=== PATIENT | female | born 1975 | race African-American/Black ===

== ENCOUNTER 2016-10-26 16:21 | Observation (INO) | payer SELFPAY ==
--- NOTE | ~2016-10-26 | DS ---
Discharge Summary [facility] [address] [place]. [address] NAME: ALEKSANDRA COATES : 71 STATUS : DIS Vivek PAT#: [id number] AGE: 41 ADM/REG DATE : 10/26/16 MR#: [id number] REPORT SERV DATE: 10/28/16 DICTATED BY: DAVID TUCKER DATE: 10/27/16 REPORT STATUS : Draft TRANSCRIBED BY: ALINAL DATE: 10/27/16 ADMISSION DATE: 10/26/2016 DISCHARGE DATE: 10/27/2016 CHIEF COMPLAINT ON ADMISSION: Left toothache, earache, and hypertension. DISCHARGING DIAGNOSES: 1. Uncontrolled hypertension. 2. Severe periodontal disease. 3. Left facial pain. 4. History of gastric bypass. HISTORY OF PRESENT ILLNESS: Please see full H and P by Dr. Dale De La Fuente regarding initial presentation. HOSPITAL COURSE: 1. Hypertensive urgency. The patient's blood pressure initially in the ER was 238/126. She was admitted to the hospital with pain control and some nitroglycerin paste. Her blood pressure has much improved. She currently has no chest pain. We will discharge her on dose of Norvasc. She did have troponins negative x2. She will follow up with primary care. Blood pressure at this time is 155/90 and last time was 161/81. 2. Left-sided facial pain. The patient had CT of the neck and face with contrast notably largely for periodontal disease. Some inflammation of the left side of the face, but no discrete abscess. She does have a small grape-sized nodule of the mandible on the left side that is palpable on exam. We will continue Augmentin as started by Dr. De La Fuente and have her follow up with the dentist ABIGAIL. 3. History of gastric bypass. Continue her outpatient regimen of vitamins and follow up with her outpatient providers. PERTINENT LABORATORY DATA: White blood cell count 6.0, hemoglobin 13.4, platelet count of 150. BMP unremarkable. DISCHARGE MEDICATION CHANGES: The patient will be on Norvasc 5 mg daily, Augmentin 875 p.o. b.i.d. for the next five days. She will also be given tramadol for pain control. DISPOSITION: Home. Time spent on this discharge is less than 30 minutes. DNK/NAYELI David Tucker MD Discharge Summary [place] [id number] [facility] [place]. [address] NAME: ALEKSANDRA COATES : 71 STATUS : DIS Vivek PAT#: [id number] AGE: 41 ADM/REG DATE : 10/26/16 MR#: [id number] REPORT SERV DATE: 10/28/16 DICTATED BY: DAVID TUCKER DATE: 10/27/16 REPORT STATUS : Draft TRANSCRIBED BY: NAYELI DATE: 10/27/16 / [id number] CC: MD [place] WILLIAM C
--- NOTE | ~2016-10-26 | HP ---
History And Physical [address] [place]. [address] NAME: ALEKSANDRA COATES : 71 STATUS : ADM Vivek PAT#: [id number] AGE: 41 ADM/REG DATE : 10/26/16 MR#: [id number] REPORT SERV DATE: 10/27/16 DICTATED BY: ALMA ROSA HAM DATE: 10/26/16 REPORT STATUS : Draft TRANSCRIBED BY: MODL DATE: 10/26/16 DATE OF ADMISSION: 10/26/2016 CHIEF COMPLAINT: A 41-year-old female presenting with left toothache, left earache, and uncontrolled hypertension. HISTORY OF PRESENTING ILLNESS: The patient's history was obtained through careful interview with the patient and brother coupled with review of [facility] medical records. The patient, just on the day prior to admission, had broken one of her left upper molars and began to have extreme pain related to this. She felt swelling going into her face as if a tooth abscess had formed with a "knot" that formed. Today, the pain was progressing into her left ear. She describes about a 10/10 severity throbbing constant pain. Then, she came to the emergency department to have this tooth looked at and had an initial blood pressure of 238/126. She has had nausea, but no vomiting. She has then developed some headache, shortness of breath, and chest pain in the middle of her chest without radiation though, a squeezing quality, 9/10 severity that improved with blood pressure management. She has felt some slight left hand numbness, but no dysarthria, no confusion, no dizziness, no hemiparesis, and no facial droop. No fevers or chills. She has had slight diaphoresis. REVIEW OF SYSTEMS: Otherwise, a 14-point review of systems was obtained and was negative. PAST MEDICAL HISTORY: 1. Gastric bypass surgery in 2014 with 180-pound weight loss. 2. Previous morbid obesity with hypertension, but her high blood pressures had apparently resolved with weight loss. 3. No diabetes. 4. No cardiac disease. 5. No lung disease. PAST SURGICAL HISTORY: 1. Gastric bypass surgery in 2013. 2. Umbilical hernia repair. 3. Partial hysterectomy. ALLERGIES: KIWI AND STRAWBERRY. History And Physical [address] [address] NAME: ALEKSANDRA COATES : 71 STATUS : ADM Vivek PAT#: [id number] AGE: 41 ADM/REG DATE : 10/26/16 MR#: [id number] REPORT SERV DATE: 10/27/16 DICTATED BY: ALMA RSOA HAM DATE: 10/26/16 REPORT STATUS : Draft TRANSCRIBED BY: NAYELI DATE: 10/26/16 SOCIAL HISTORY: Quit smoking five months ago. Drinks occasional alcohol. Is single. Lives in [place], [place]. 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 FAMILY HISTORY: Hypertension, heart disease, diabetes, and blood clots. CURRENT MEDICATIONS: Include aspirin 81 mg p.o. daily, vitamin B12, vitamin D, folic acid, and multivitamin. PHYSICAL EXAMINATION: VITAL SIGNS: Temperature 98.0, pulse 52, blood pressure 206/111, respiratory rate 16, O2 saturation 100% on room air. GENERAL: Pleasant, cooperative female, in evidence of some slight distress secondary to persistent headache. Her chest pain is now resolved. HEENT: Pupils equal, round, and reactive to light. No conjunctival pallor. No scleral icterus. Nares are patent. Oropharynx is clear of obstruction. Moist mucous membranes. NECK: Trachea midline. No thyromegaly. LYMPH: No cervical lymphadenopathy. No supraclavicular lymphadenopathy. RESPIRATORY: Clear to auscultation at bases. No wheezes, rales, or rhonchi. Normal respiratory effort. CARDIOVASCULAR: Bradycardic, regular rhythm. No murmurs, rubs, or gallops. No extremity edema is appreciated. ABDOMEN: Soft, nontender, nondistended. Normal bowel sounds auscultated throughout. No hepatosplenomegaly. DERMATOLOGICAL: Warm and dry extremities. No pallor, no cyanosis. PSYCHIATRIC: Normal affect. Good mood. Alert and oriented x3. Left ear exam shows slight swelling of the tympanic membrane, but no erythema or purulence behind it. Mouth exam shows a fractured upper left molar with obvious caries. No overt purulent drainage, but there is swelling around that tooth. LABORATORY DATA: White blood cell count 5.3, hemoglobin 15, hematocrit 46, platelets 175. Sodium 139, potassium 4.2, chloride 104, bicarb 28, BUN 9, creatinine 1.15, glucose 80. Troponin negative. INR 1.1. STUDIES: 1. Chest x-ray by my own evaluation shows no acute cardiopulmonary process. 2. EKG by my own evaluation shows sinus bradycardia, premature ventricular contractions. ASSESSMENT AND PLAN: 1. Hypertensive urgency. Use p.r.n. medications. Check thyroid. Obtain pain control. 2. Left tooth abscess. Place on Augmentin p.o. Check a CT scan of the neck and face to rule out significant abscess that might require surgical drainage? 3. History of gastric bypass with 180-pound weight loss. History And Physical [address] [address] NAME: ALEKSANDRA COATES : 71 STATUS : ADM Vivek PAT#: [id number] AGE: 41 ADM/REG DATE : 10/26/16 MR#: [id number] REPORT SERV DATE: 10/27/16 DICTATED BY: ALMA ROSA HAM DATE: 10/26/16 REPORT STATUS : Draft TRANSCRIBED BY: MODMagan DATE: 10/26/16 KPL/NAYELI Alma Rosa Ham M.D. / [id number] CC: Ashley Perez
[~2016-10-26 16:21] MED LIST: ASAB PO; LEVSINTAB PO; LISINOPRIL40 MG PO; LORTABLIQ PO; NORV5 PO; PR25 PO; PRILO PO; ZOFRAN4 PO
[2016-10-26 16:22] LABS: BASOPHILS 0.4 %; BASOPHILS ABSOLUTE 0.02 10/3/uL (0.0-0.16); EOSINOPHILS 1.5 %; EOSINOPHILS ABSOLUTE 0.08 10/3/uL (0.0-0.53); ER CBC TAT 0 Hrs 08 Mins; IMMATURE GRANULOCYTES 0.2 %; IMMATURE GRANULOCYTES ABSOLUTE 0.01 10/3/uL (0.0-0.11); LYMPHOCYTES 35.3 %; LYMPHOCYTES ABSOLUTE 1.87 10/3/uL (0.67-4.30); MEAN CORPUS HGB CONC 33.5 g/dL (32.0-36.0); MEAN CORPUSCULAR VOLUME 83.6 fL (80-100); MEAN PLATELET VOLUME 10.5 fL (9.2-13.0); MONOCYTES 4.9 %; MONOCYTES ABSOLUTE 0.26 10/3/uL (0.21-1.20); NEUTROPHILS 57.7 %; NEUTROPHILS ABSOLUTE 3.06 10/3/uL (2.02-8.40); PLATELET COUNT 175 10/3/uL (150-400); RBC DISTRIBUTION WIDTH 13.1 % (12.0-16.0); WHITE BLOOD CELLS 5.3 10/3/uL (4.5-10.5)
[2016-10-26 16:23] LABS: HEMOGLOBIN 15.4 g/dL (12.0-16.0); MANUAL DIFF NO %
[2016-10-26 16:36] LABS: INTERNATIONAL NORMAL RATI 1.1 UNITS (-); PARTIAL THROMBO TIME 25.6 SEC (22.5-37.2); PROTIME (NOT ORD) 13.6 SEC (12.0-14.5)
[2016-10-26 16:38] LABS: BUN (BLOOD UREA NITROGEN) 9 MG/DL (6-23); CALCIUM, SERUM 9.1 MG/DL (8.5-10.4); CHEST PAIN PROFILE TAT 0 Hrs 24 Mins; CHLORIDE, SERUM 104 MMOL/L (96-112); CO2 (CARBON DIOXIDE) 28 MMOL/L (24-34); CREATININE 1.15 MG/DL (0.55-1.02); GFR AFRICAN AMERICAN 67 ML/MIN (>=60); GFR NON AFRICAN AMERICAN 58 ML/MIN (>=60); GLUCOSE, SERUM 80 MG/DL (60-99); POTASSIUM, SERUM 4.2 MMOL/L (3.5-5.3); SODIUM, SERUM 139 MMOL/L (135-148); TROPONIN I <0.02 NG/ML (<0.05)
[2016-10-26] MEDS ORDERED: FOLIC ACID400 MC1 PO (18:31)
[2016-10-26] MEDS ORDERED: ASAB PO (18:31)
[2016-10-26] MEDS ORDERED: CYANO1000T PO (18:31)
[2016-10-26] MEDS ORDERED: VITD PO (18:32)
[2016-10-26] MEDS ORDERED: MVI PO (18:32)
[2016-10-27 06:01] LABS: BASOPHILS 0.3 %; BASOPHILS ABSOLUTE 0.02 10/3/uL (0.0-0.16); EOSINOPHILS 0.5 %; EOSINOPHILS ABSOLUTE 0.03 10/3/uL (0.0-0.53); HEMOGLOBIN 13.4 g/dL (12.0-16.0); IMMATURE GRANULOCYTES 0.2 %; IMMATURE GRANULOCYTES ABSOLUTE 0.01 10/3/uL (0.0-0.11); LYMPHOCYTES 22.4 %; LYMPHOCYTES ABSOLUTE 1.33 10/3/uL (0.67-4.30); MEAN CORPUSCULAR HEMOGLOB 27.4 pg (26.0-34.0); MEAN PLATELET VOLUME 10.5 fL (9.2-13.0); MONOCYTES 5.4 %; MONOCYTES ABSOLUTE 0.32 10/3/uL (0.21-1.20); NEUTROPHILS 71.2 %; NEUTROPHILS ABSOLUTE 4.24 10/3/uL (2.02-8.40); PLATELET COUNT 150 10/3/uL (150-400); RBC DISTRIBUTION WIDTH 13.1 % (12.0-16.0); RED CELL COUNT 4.89 10/6/uL (4.0-5.6)
[2016-10-27 06:03] LABS: INTERNATIONAL NORMAL RATI 1.2 UNITS (-); PARTIAL THROMBO TIME 28.5 SEC (22.5-37.2); PROTIME (NOT ORD) 14.7 SEC (12.0-14.5)
[2016-10-27 06:06] LABS: HEMATOCRIT 40.6 % (36.0-48.0); MANUAL DIFF NO %
[2016-10-27 06:19] LABS: A/G RATIO 0.8 (0.7-1.9); BUN (BLOOD UREA NITROGEN) 10 MG/DL (6-23); CALCIUM, SERUM 8.4 MG/DL (8.5-10.4); CHLORIDE, SERUM 104 MMOL/L (96-112); CO2 (CARBON DIOXIDE) 26 MMOL/L (24-34); CREATININE 0.98 MG/DL (0.55-1.02); GFR AFRICAN AMERICAN 82 ML/MIN (>=60); GFR NON AFRICAN AMERICAN 71 ML/MIN (>=60); GLOBULIN 3.7 G/DL (2.5-4.1); GLUCOSE, SERUM 80 MG/DL (60-99); POTASSIUM, SERUM 3.8 MMOL/L (3.5-5.3); SGOT(AST) 10 U/L (5-40); SGPT(ALT) 15 U/L (5-65); SODIUM, SERUM 138 MMOL/L (135-148); TOTAL PROTEIN 6.7 G/DL (6.0-8.5); TROPONIN I <0.02 NG/ML (<0.05)
[2016-10-27 06:23] LABS: ALKALINE PHOSPHATASE 58 U/L (45-117); TOTAL BILIRUBIN 0.9 MG/DL (0-1.2)
[2016-10-27] MEDS ORDERED: ULTRAM50 PO (13:20)
[2016-10-27] MEDS ORDERED: NORV5 PO (13:20)
[2016-10-27] MEDS ORDERED: AUG875 PO (13:20)
== END 2016-10-27 15:07 | disposition home or self-care (01) ==
LOC: ER 16:21 → CDU1 19:14
PROVIDERS: Hospitalist
DX: I16.0 Hypertensive urgency (principal); K08.89 Other specified disorders of teeth and supporting structures; K05.6 Periodontal disease, unspecified; R51 Headache; Z98.84 Bariatric surgery status; Z90.711 Acquired absence of uterus with remaining cervical stump; Z98.890 Other specified postprocedural states; Z87.891 Personal history of nicotine dependence; Z82.49 Family history of ischemic heart disease and other diseases of the circulatory system; Z83.3 Family history of diabetes mellitus; Z79.82 Long term (current) use of aspirin; Z79.52 Long term (current) use of systemic steroids; Z79.899 Other long term (current) drug therapy
CPT/HCPCS: 70487; 70491; 71010; 71020; 80048; 80053; 83735; 84443; 84484; 85025; 85610; 85730; 93005; 96374; 96375; 96376; 99285; A9270-GY; G0378; J0360; J2405; Q9967